=== PATIENT | male | born 1980 | race Caucasian/White ===

== ENCOUNTER 2016-06-29 01:32 | Emergency (ER) | payer SELFPAY ==
[2016-06-29 01:30] LABS: POC - CKMB 5.4 ng/mL (0.0-7.9); POC - TROPONIN <0.05 ng/mL (<=0.05)
[~2016-06-29 01:32] MED LIST: ALBUTEROL17 GM INH; NO MEDICATIONS; NORCO1 TAB 10/3 PO; PREDNISONE PO
[2016-06-29 02:12] LABS: BASOPHIL% 0.3 % (0-2.5); EOSINOPHIL# 0.1 X10e3 (0-0.7); EOSINOPHIL% 0.8 % (0.0-7.0); HEMATOCRIT 46.2 % (38.0-50.0); HEMOGLOBIN 15.6 gm/dL (13.0-16.0); LYMPHOCYTE# 2.4 X10e3 (1.0-3.5); LYMPHOCYTE% 14.5 % (17.0-45.0); MEAN CELL VOLUME 88.7 FL (83-96); MEAN CORPUSCULAR HEMOGLOBIN 29.9 PG (28-34); MEAN CORPUSCULAR HGB CONC 33.7 g/dL (30-36); MEAN PLATELET VOLUME 8.6 FL (6.5-11.5); MONOCYTE# 1.5 X10e3 (0-1.0); MONOCYTE% 8.9 % (3.0-12.0); NEUTROPHIL# 12.3 X10e3 (1.5-7.1); NEUTROPHIL% 75.5 % (40-75); PLATELET COUNT 369 X10e3 (140-420); RED BLOOD COUNT 5.21 X10e (3.90-5.60); RED CELL DISTRIBUTION WIDTH 13.1 % (11.0-15.5); WHITE BLOOD COUNT 16.3 X10e3 (4.0-10.5)
[2016-06-29 02:13] LABS: DIFF IND YES
[2016-06-29 02:23] LABS: ANISOCYTOSIS SL; PLATELET ESTIMATE NORMAL (NORMAL)
[2016-06-29 02:32] LABS: ALBUMIN SERUM 4.7 g/dL (3.5-5.0); BILIRUBIN, DIRECT 0.2 mg/dL (0.0-0.2); BILIRUBIN,TOTAL 1.2 mg/dL (0.2-2.0); CALCIUM SERUM 9.9 mg/dL (8.4-10.2); GLOM FILT RATE Estimated 97.1 mL/min (>60); POTASSIUM 3.3 mmol/L (3.5-5.1); PROTEIN TOTAL SERUM 8.8 g/dL (6.0-8.3)
== END 2016-06-29 03:15 | disposition home or self-care (01) ==
LOC: CED 01:32
PROVIDERS: Emergency Medicine
DX: R10.10 Upper abdominal pain, unspecified (principal); R11.2 Nausea with vomiting, unspecified; F15.10 Other stimulant abuse, uncomplicated; F17.200 Nicotine dependence, unspecified, uncomplicated
CPT/HCPCS: 36415; 80048; 80076; 82553; 83690; 84484; 85025; 96361; 96374; 96375; 99284; J2270; J2405